=== PATIENT | male | born 1965 | race Caucasian/White ===

== ENCOUNTER 2017-01-12 12:42 | Inpatient (IN) | payer SELFPAY ==
[~2017-01-12] VITALS: Ht 180.3 cm; Wt 74.8 kg
[2017-01-12] MEDS ORDERED: ACETAMINOPHEN 325MG TABLET PO STA (13:05)
[2017-01-12] MEDS ORDERED: VANCOMYCIN 1 G PREMIX 200 ML IV ONE (13:15)
[2017-01-12] MEDS ORDERED: SODIUM CHLORIDE 0.9% 1000ML BAG (SEPSIS BOLUS) IV ONE (13:15)
[2017-01-12] MEDS ORDERED: PIPERACILLIN/TAZ 3.375G PREMIX 50 ML IV ONE (13:15)
[2017-01-12 13:47] LABS: HEMATOCRIT. 30.4 % (42.0-52.0); HEMOGLOBIN. 9.9 g/dL (14.0-18.0); MEAN CORPUSCULAR HEMOGLOBIN 27.9 pg (28.0-32.0); MEAN CORPUSCULAR VOLUME 85.7 fL (80.0-94.0); PLATELET 705 x1000/uL (130-400); RED BLOOD CELL COUNT 3.55 mill/uL (4.7-6.1); RED CELL DISTRIBUTION WIDTH 14.5 % (11.6-14.6)
[2017-01-12 13:57] LABS: INR 1.3; PROTHROMBIN TIME 13.5 sec (9.4-11.6)
[2017-01-12 14:21] LABS: CARBON DIOXIDE 24 mEq/L (21-32); CHLORIDE 89 mEq/L (98-107)
[2017-01-12] MEDS ORDERED: ONDANSETRON HCL 4MG/2ML VIAL IV STA (14:40)
[2017-01-12] MEDS ORDERED: MORPHINE SULFATE 4 MG/ML CPJ (NOT FOR IM USE) IV STA (14:40)
[2017-01-12 16:32] LABS: PLATELET ESTIMATE MARKEDLY INCREASED
[2017-01-12 21:30] VITALS: BP 126/75
[2017-01-12] MEDS ORDERED: ONDANSETRON HCL 4MG/2ML VIAL IV PRN (23:00)
[2017-01-12] MEDS ORDERED: IPRATROPIUM/ALBUTEROL 0.5-3(2.5)MG/3ML NEB INH PRN (23:00)
[2017-01-12] MEDS ORDERED: VANCOMYCIN 1 G PREMIX 200 ML IV SCH (23:00)
[2017-01-12] MEDS ORDERED: MAGNESIUM/ALUMINUM HYDROXIDE/SIMETHICONE 30ML UDC PO PRN (23:00)
[2017-01-12] MEDS: HYDROCODONE/ACETAMINOPHEN 10/325MG TABLET PO PRN (23:37)
[2017-01-12] MEDS: SODIUM CHLORIDE 0.9% 1,000 ML IV SCH (23:47)
[2017-01-13] VITALS (8 sets, daily range): BP systolic 102–141; BP diastolic 50–80
[2017-01-13] MEDS ORDERED: INSULIN DETEMIR UD 100 UNITS/ML SYR SUBCUT NR
[2017-01-13] MEDS: PIPERACILLIN/TAZ 3.375G PREMIX 50 ML IV SCH ×3 (01:27→17:34)
[2017-01-13] MEDS: VANCOMYCIN 2,000 MG in DEXT 5% WATER 500 ML IV SCH ×2 (03:05→09:54)
[2017-01-13] MEDS: BLOOD SUGAR DIAGNOSTIC STRIP TEST SCH ×4 (05:51→20:52)
[2017-01-13] MEDS: HYDROCODONE/ACETAMINOPHEN 10/325MG TABLET PO PRN (05:56)
[2017-01-13] MEDS: INSULIN LISPRO 100 UNITS/ML SUBCUT SCH ×4 (06:38→20:51)
[2017-01-13] MEDS: ACETAMINOPHEN 325MG TABLET PO PRN (18:35)
[2017-01-13] MEDS ORDERED: INSULIN DETEMIR UD 100 UNITS/ML SYR SUBCUT SCH ×2 (22:00)
[2017-01-14] VITALS: BP 126/66
[2017-01-14] MEDS: PIPERACILLIN/TAZ 3.375G PREMIX 50 ML IV SCH ×3 (00:36→18:10)
[2017-01-14] MEDS: SODIUM CHLORIDE 0.9% 1,000 ML IV SCH (00:39)
[2017-01-14 04:00] VITALS: BP 130/67
[2017-01-14 06:10] VITALS: BP 140/92
[2017-01-14] MEDS: BLOOD SUGAR DIAGNOSTIC STRIP TEST SCH ×4 (06:34→20:33)
[2017-01-14] MEDS: DEXTROSE 50% WATER 50ML SYRINGE IV PRN ×2 (06:35→18:14)
[2017-01-14] MEDS: INSULIN LISPRO 100 UNITS/ML SUBCUT SCH ×4 (06:37→21:01)
[2017-01-14 07:02] LABS: HEMATOCRIT. 26.5 % (42.0-52.0); HEMOGLOBIN. 8.7 g/dL (14.0-18.0); MEAN CORPUSCULAR VOLUME 85.5 fL (80.0-94.0); MEAN PLATELET VOLUME 8.2 fl (7.4-10.4); PLATELET 603 x1000/uL (130-400); RED CELL DISTRIBUTION WIDTH 14.6 % (11.6-14.6)
[2017-01-14 08:00] VITALS: BP 150/77
[2017-01-14] MEDS ORDERED: DEXT 5% WATER 500 ML IV SCH (11:15)
[2017-01-14] MEDS ORDERED: POTASSIUM CHLORIDE 20MEQ TABLET SR PO NR ×2 (11:15→13:30)
[2017-01-14 12:00] VITALS: BP 124/67
[2017-01-14 18:10] LABS: PLATELET ESTIMATE INCREASED
[2017-01-14 18:17] LABS: BG BASE EXCESS 0.9 mmol/L (-2.0-2.0); BG CARBOXYHEMOGLOBIN 0.3 % (0.5-1.5); BG DEOXYHEMOGLOBIN 4.8 % (0.0-5.0); BG FRACTION INSPIRED OXYGEN 21; BG HCO3 ACT 24.6 mmol/L (22.0-26.0); BG METHEMOGLOBIN 0.1 % (0.0-1.5); BG OXYGEN SATURATION 95.2 % (92.0-98.5); BG OXYHEMOGLOBIN 94.8 % (94.0-97.0); BG PCO2 35.7 mmHg (35.0-45.0); BG PH 7.457 (7.350-7.450); BG PO2 73.9 mmHg (75.0-100.0); BG SAMPLE SITE RIGHT RADIAL; BG TOTAL HEMOGLOBIN 9.2 g/dL (12.0-18.0); BG VENT MODE ROOM AIR
[2017-01-14] MEDS: HYDROCODONE/ACETAMINOPHEN 10/325MG TABLET PO PRN (20:34)
[2017-01-14 20:38] VITALS: BP 122/63
[2017-01-14 20:45] LABS: HEMATOCRIT. 23.9 % (42.0-52.0); HEMOGLOBIN. 7.8 g/dL (14.0-18.0); MEAN CORPUSCULAR HEMOGLOBIN 27.7 pg (28.0-32.0); MEAN PLATELET VOLUME 7.7 fl (7.4-10.4); PLATELET 512 x1000/uL (130-400); RED BLOOD CELL COUNT 2.82 mill/uL (4.7-6.1); RED CELL DISTRIBUTION WIDTH 14.7 % (11.6-14.6)
[2017-01-14 21:08] LABS: CARBON DIOXIDE 25 mEq/L (21-32); CHLORIDE 93 mEq/L (98-107); TROPONIN I < 0.02 ng/mL (0.00-0.04)
[2017-01-14 21:11] LABS: PLATELET ESTIMATE INCREASED
[2017-01-15] VITALS: BP 129/73
[2017-01-15] MEDS: PIPERACILLIN/TAZ 3.375G PREMIX 50 ML IV SCH ×2 (01:04→09:40)
[2017-01-15] MEDS: SODIUM CHLORIDE 0.9% 1,000 ML IV SCH ×2 (01:20→23:47)
[2017-01-15 04:00] VITALS: BP 115/60
[2017-01-15] MEDS: BLOOD SUGAR DIAGNOSTIC STRIP TEST SCH ×4 (06:11→20:15)
[2017-01-15] MEDS: INSULIN LISPRO 100 UNITS/ML SUBCUT SCH ×4 (06:27→20:16)
[2017-01-15 07:35] VITALS: BP 131/67
[2017-01-15 12:00] VITALS: BP 125/62
[2017-01-15] MEDS ORDERED: MORPHINE SULFATE 4 MG/ML CPJ (NOT FOR IM USE) IV NR (12:15)
[2017-01-15] MEDS ORDERED: MORPHINE SULFATE 4 MG/ML CPJ (NOT FOR IM USE) IV PRN ×2 (12:15→18:00)
[2017-01-15] MEDS ORDERED: TETANUS, DIPHTHERIA, PERTUSSIS VAC/PF 0.5ML (>7YR OLD) IM ONE (13:45)
[2017-01-15 16:12] VITALS: BP 132/77
[2017-01-15] MEDS ORDERED: PIPERACILLIN/TAZ 2.25G PREMIX 50 ML IV SCH (18:00)
[2017-01-15] MEDS: ACETAMINOPHEN 325MG TABLET PO PRN (18:01)
[2017-01-15 20:00] VITALS: BP 134/74
[2017-01-15 20:51] LABS: HEMATOCRIT. 23.4 % (42.0-52.0); HEMOGLOBIN. 7.7 g/dL (14.0-18.0); MEAN CORPUSCULAR HEMOGLOBIN 27.9 pg (28.0-32.0); MEAN CORPUSCULAR VOLUME 84.4 fL (80.0-94.0); MEAN PLATELET VOLUME 7.5 fl (7.4-10.4); PLATELET 509 x1000/uL (130-400); RED BLOOD CELL COUNT 2.78 mill/uL (4.7-6.1); RED CELL DISTRIBUTION WIDTH 14.8 % (11.6-14.6)
[2017-01-15 21:27] LABS: PLATELET ESTIMATE INCREASED
[2017-01-15] MEDS: PIPERACILLIN/TAZ 2.25G PREMIX 50 ML IV SCH (23:46)
[2017-01-16] VITALS: BP 125/65
[2017-01-16 04:00] VITALS: BP 129/65
[2017-01-16] MEDS: BLOOD SUGAR DIAGNOSTIC STRIP TEST SCH ×4 (06:11→20:24)
[2017-01-16] MEDS: INSULIN LISPRO 100 UNITS/ML SUBCUT SCH ×4 (06:23→21:13)
[2017-01-16 06:59] LABS: HEMATOCRIT. 24.7 % (42.0-52.0); HEMOGLOBIN. 8.1 g/dL (14.0-18.0); MEAN CORPUSCULAR HEMOGLOBIN 27.8 pg (28.0-32.0); MEAN PLATELET VOLUME 7.6 fl (7.4-10.4); PLATELET 510 x1000/uL (130-400); RED CELL DISTRIBUTION WIDTH 14.5 % (11.6-14.6)
[2017-01-16 08:00] VITALS: BP 149/79
[2017-01-16] MEDS: PIPERACILLIN/TAZ 2.25G PREMIX 50 ML IV SCH ×2 (08:36→15:27)
[2017-01-16] MEDS: SODIUM CHLORIDE 0.9% 1,000 ML IV SCH ×3 (08:36→18:53)
[2017-01-16] MEDS ORDERED: HEPARIN 1000 UNITS/ML 10ML ONE (10:55)
[2017-01-16 12:00] VITALS: BP 140/77
[2017-01-16 12:08] LABS: HEPATITIS B SURFACE ANTIGEN NEGATIVE
[2017-01-16] MEDS: ACETAMINOPHEN 325MG TABLET PO PRN (12:20)
[2017-01-16 12:36] LABS: HEPATITIS B CORE AB IGM NEGATIVE
[2017-01-16 12:37] LABS: HEPATITIS A AB IGM NEGATIVE (NEGATIVE)
[2017-01-16 16:00] VITALS: BP 133/74
[2017-01-16 16:47] LABS: PLATELET ESTIMATE INCREASED
[2017-01-16 20:00] VITALS: BP 141/81
[2017-01-17] VITALS: BP 139/64
[2017-01-17] MEDS: PIPERACILLIN/TAZ 2.25G PREMIX 50 ML IV SCH ×3 (00:15→23:51)
[2017-01-17 04:00] VITALS: BP 137/80
[2017-01-17] MEDS: SODIUM CHLORIDE 0.9% 1,000 ML IV SCH ×2 (04:06→22:11)
[2017-01-17] MEDS ORDERED: ONDANSETRON HCL 4MG/2ML VIAL IV PRN (06:15)
[2017-01-17] MEDS: BLOOD SUGAR DIAGNOSTIC STRIP TEST SCH ×4 (06:15→20:34)
[2017-01-17] MEDS ORDERED: SUCCINYLCHOLINE CHLORIDE 200MG/10ML VIAL IV ONE (06:27)
[2017-01-17] MEDS ORDERED: PROPOFOL 200MG/20ML VIAL IV ONE (06:27)
[2017-01-17] MEDS ORDERED: LIDOCAINE HCL 1% 20ML VIAL (Pyxis) INJ ONE (06:27)
[2017-01-17] MEDS ORDERED: ROCURONIUM BROMIDE 10MG/ML VIAL 5ML IV ONE (06:27)
[2017-01-17] MEDS ORDERED: MIDAZOLAM HCL 2 MG/2 ML VIAL ONE (06:27)
[2017-01-17 06:37] LABS: HEMATOCRIT. 23.8 % (42.0-52.0); HEMOGLOBIN. 7.9 g/dL (14.0-18.0); MEAN CORPUSCULAR HEMOGLOBIN 27.9 pg (28.0-32.0); MEAN PLATELET VOLUME 7.3 fl (7.4-10.4); PLATELET 515 x1000/uL (130-400); RED BLOOD CELL COUNT 2.83 mill/uL (4.7-6.1); RED CELL DISTRIBUTION WIDTH 14.7 % (11.6-14.6)
[2017-01-17] MEDS ORDERED: VANCOMYCIN HCL 500 MG/VIAL ONE (07:21)
[2017-01-17] MEDS ORDERED: NORMAL SALINE 0.9% 10 ML SYR ONE ×2 (07:21→08:24)
[2017-01-17] MEDS ORDERED: BACITRACIN 50,000 UNITS/VIAL ONE ×2 (07:21→08:24)
[2017-01-17 08:00] VITALS: BP 132/65
[2017-01-17] MEDS ORDERED: FENTANYL CITRATE/PF 50MCG/ML 2ML VIAL ONE ×2 (08:14→08:25)
[2017-01-17] MEDS ORDERED: GENTAMICIN SULF 40MG/ML 2ML VIAL ONE (08:24)
[2017-01-17] MEDS: HYDROMORPHONE HCL/PF 2MG/ML CPJ IV PRN ×6 (08:53→19:01)
[2017-01-17] MEDS ORDERED: HEPARIN SODIUM 1,000 UNIT/1ML VIAL IV NR (09:00)
[2017-01-17] MEDS: FENTANYL CITRATE/PF 50MCG/ML 2ML VIAL IV PRN ×3 (09:02→09:14)
[2017-01-17] MEDS ORDERED: HYDROCODONE/ACETAMINOPHEN 5/325MG TABLET PO PRN (09:30)
[2017-01-17] MEDS: INSULIN LISPRO 100 UNITS/ML SUBCUT SCH ×3 (12:40→21:07)
[2017-01-17 13:26] LABS: PLATELET ESTIMATE INCREASED
[2017-01-17 16:00] VITALS: BP 129/72
[2017-01-17 20:00] VITALS: BP 120/67
[2017-01-18] VITALS (17 sets, daily range): BP systolic 120–162; BP diastolic 60–93
[2017-01-18] MEDS: ACETAMINOPHEN 325MG TABLET PO PRN ×3 (00:01→13:01)
[2017-01-18 06:04] LABS: BASOPHILS % 0.6 % (0.0-2.0); EOSINOPHILS % 1.7 % (0.0-5.0); LYMPHOCYTES % 12.5 % (20.0-50.0); MEAN CORPUSCULAR HEMOGLOBIN 28.2 pg (28.0-32.0); MEAN CORPUSCULAR VOLUME 84.6 fL (80.0-94.0); MEAN PLATELET VOLUME 7.4 fl (7.4-10.4); MONOCYTES % 8.2 % (2.0-8.0); PLATELET 373 x1000/uL (130-400); RED BLOOD CELL COUNT 1.73 mill/uL (4.7-6.1); RED CELL DISTRIBUTION WIDTH 14.6 % (11.6-14.6)
[2017-01-18] MEDS: BLOOD SUGAR DIAGNOSTIC STRIP TEST SCH ×4 (06:19→20:38)
[2017-01-18] MEDS: INSULIN LISPRO 100 UNITS/ML SUBCUT SCH ×4 (06:26→20:38)
[2017-01-18 06:31] LABS: HEMATOCRIT. 14.6 % (42.0-52.0); HEMOGLOBIN. 4.9 g/dL (14.0-18.0)
[2017-01-18] MEDS: DIPHENHYDRAMINE 50MG/ML VIAL IV PRN (13:02)
[2017-01-18] MEDS: PIPERACILLIN/TAZ 2.25G PREMIX 50 ML IV SCH ×2 (13:04→21:27)
[2017-01-18] MEDS ORDERED: ZINC SULFATE 220 MG ( 50 ) CAPSULE PO NR (17:30)
[2017-01-18 17:51] LABS: INR 1.1; PROTHROMBIN TIME 11.4 sec (9.4-11.6)
[2017-01-18] MEDS: ONDANSETRON HCL 4MG/2ML VIAL IV PRN (18:49)
[2017-01-18 20:25] LABS: HEMATOCRIT 28.2 % (42.0-52.0); HEMOGLOBIN 9.7 g/dL (14.0-18.0)
[2017-01-18] MEDS: CLONIDINE 0.1MG TABLET PO PRN (20:34)
[2017-01-18] MEDS: ASCORBIC ACID 250 MG TABLET PO SCH (20:34)
[2017-01-19] VITALS: BP 151/79
[2017-01-19 04:00] VITALS: BP 141/74
[2017-01-19] MEDS: PIPERACILLIN/TAZ 2.25G PREMIX 50 ML IV SCH ×2 (05:25→17:27)
[2017-01-19] MEDS: BLOOD SUGAR DIAGNOSTIC STRIP TEST SCH ×4 (06:19→21:24)
[2017-01-19] MEDS: INSULIN LISPRO 100 UNITS/ML SUBCUT SCH ×4 (07:11→21:33)
[2017-01-19 08:00] VITALS: BP 152/76
[2017-01-19] MEDS: ASCORBIC ACID 250 MG TABLET PO SCH ×2 (09:04→21:13)
[2017-01-19] MEDS: MULTIVITAMINS,THER W-MINERALS TABLET PO SCH (09:04)
[2017-01-19 12:00] VITALS: BP 161/81
[2017-01-19 12:39] LABS: BASOPHILS % 0.7 % (0.0-2.0); EOSINOPHILS % 1.5 % (0.0-5.0); HEMATOCRIT. 24.8 % (42.0-52.0); HEMOGLOBIN. 8.3 g/dL (14.0-18.0); LYMPHOCYTES % 9.1 % (20.0-50.0); MEAN CORPUSCULAR VOLUME 83.7 fL (80.0-94.0); MONOCYTES % 6.6 % (2.0-8.0); NEUTROPHILS % 82.1 % (40.0-76.0); PLATELET 421 x1000/uL (130-400); RED BLOOD CELL COUNT 2.97 mill/uL (4.7-6.1); RED CELL DISTRIBUTION WIDTH 14.2 % (11.6-14.6)
[2017-01-19] MEDS: ONDANSETRON HCL 4MG/2ML VIAL IV PRN (14:35)
[2017-01-19 15:59] VITALS: BP 146/74
[2017-01-19] MEDS: PAROXETINE HCL 20MG TABLET PO SCH (17:28)
[2017-01-19 20:00] VITALS: BP 156/81
[2017-01-19] MEDS: HYDROCODONE/ACETAMINOPHEN 10/325MG TABLET PO PRN (22:26)
[2017-01-20] VITALS: BP 147/74
[2017-01-20] MEDS: PIPERACILLIN/TAZ 2.25G PREMIX 50 ML IV SCH ×2 (00:27→08:56)
[2017-01-20] MEDS: SODIUM CHLORIDE 0.9% 1,000 ML IV SCH ×3 (00:27→15:59)
[2017-01-20 04:00] VITALS: BP 153/83
[2017-01-20] MEDS: INSULIN LISPRO 100 UNITS/ML SUBCUT SCH ×4 (06:59→21:00)
[2017-01-20] MEDS: BLOOD SUGAR DIAGNOSTIC STRIP TEST SCH ×4 (07:00→21:00)
[2017-01-20 07:28] LABS: BASOPHILS % 0.7 % (0.0-2.0); EOSINOPHILS % 2.5 % (0.0-5.0); HEMATOCRIT. 25.1 % (42.0-52.0); HEMOGLOBIN. 8.5 g/dL (14.0-18.0); LYMPHOCYTES % 12.4 % (20.0-50.0); MEAN CORPUSCULAR HEMOGLOBIN 28.5 pg (28.0-32.0); MEAN CORPUSCULAR VOLUME 84.2 fL (80.0-94.0); MEAN PLATELET VOLUME 6.9 fl (7.4-10.4); MONOCYTES % 5.8 % (2.0-8.0); NEUTROPHILS % 78.6 % (40.0-76.0); PLATELET 413 x1000/uL (130-400); RED BLOOD CELL COUNT 2.98 mill/uL (4.7-6.1); RED CELL DISTRIBUTION WIDTH 14.2 % (11.6-14.6)
[2017-01-20 08:00] VITALS: BP 154/85
[2017-01-20] MEDS: MULTIVITAMINS,THER W-MINERALS TABLET PO SCH (08:56)
[2017-01-20] MEDS: FERROUS SULFATE 325MG TABLET PO SCH (08:57)
[2017-01-20] MEDS: ASCORBIC ACID 250 MG TABLET PO SCH ×2 (09:01→22:01)
[2017-01-20] MEDS: PAROXETINE HCL 20MG TABLET PO SCH (09:01)
[2017-01-20 12:00] VITALS: BP 160/83
[2017-01-20] MEDS: CEFTRIAXONE 2 G PREMIX 50 ML IV SCH (15:59)
[2017-01-20 16:00] VITALS: BP 165/68
[2017-01-20] MEDS: ONDANSETRON HCL 4MG/2ML VIAL IV PRN (18:39)
[2017-01-20 20:00] VITALS: BP 167/89
[2017-01-20] MEDS: CLONIDINE 0.1MG TABLET PO PRN (22:01)
[2017-01-21] VITALS: BP 155/83
[2017-01-21] MEDS: SODIUM CHLORIDE 0.9% 1,000 ML IV SCH (00:48)
[2017-01-21 04:00] VITALS: BP 166/82
[2017-01-21] MEDS: BLOOD SUGAR DIAGNOSTIC STRIP TEST SCH ×4 (06:05→21:59)
[2017-01-21] MEDS: INSULIN LISPRO 100 UNITS/ML SUBCUT SCH ×4 (06:05→21:00)
[2017-01-21 07:05] LABS: BASOPHILS % 0.7 % (0.0-2.0); EOSINOPHILS % 2.5 % (0.0-5.0); HEMATOCRIT. 24.1 % (42.0-52.0); HEMOGLOBIN. 8.1 g/dL (14.0-18.0); LYMPHOCYTES % 9.6 % (20.0-50.0); MEAN CORPUSCULAR HEMOGLOBIN 28.7 pg (28.0-32.0); MEAN CORPUSCULAR VOLUME 84.7 fL (80.0-94.0); MEAN PLATELET VOLUME 6.8 fl (7.4-10.4); MONOCYTES % 4.3 % (2.0-8.0); NEUTROPHILS % 82.9 % (40.0-76.0); PLATELET 387 x1000/uL (130-400); RED BLOOD CELL COUNT 2.84 mill/uL (4.7-6.1); RED CELL DISTRIBUTION WIDTH 14.1 % (11.6-14.6)
[2017-01-21 08:00] VITALS: BP 182/98
[2017-01-21] MEDS ORDERED: HEPARIN SODIUM 1,000 UNIT/1ML VIAL IV SCH (09:30)
[2017-01-21 12:00] VITALS: BP 166/85
[2017-01-21] MEDS: ASCORBIC ACID 250 MG TABLET PO SCH ×2 (12:58→21:42)
[2017-01-21] MEDS: FERROUS SULFATE 325MG TABLET PO SCH (12:58)
[2017-01-21] MEDS: MULTIVITAMINS,THER W-MINERALS TABLET PO SCH (12:58)
[2017-01-21] MEDS: PAROXETINE HCL 20MG TABLET PO SCH (12:58)
[2017-01-21] MEDS: CLONIDINE 0.1MG TABLET PO PRN (15:28)
[2017-01-21] MEDS: CEFTRIAXONE 2 G PREMIX 50 ML IV SCH (15:28)
[2017-01-21] MEDS ORDERED: BACITRACIN ZINC 15GM TUBE TOP ONE (16:02)
[2017-01-21] MEDS ORDERED: BACITRACIN 50,000 UNITS/VIAL ONE (16:02)
[2017-01-21] MEDS ORDERED: NORMAL SALINE 0.9% 10 ML SYR ONE (16:03)
[2017-01-21] MEDS ORDERED: MIDAZOLAM HCL 2 MG/2 ML VIAL ONE (17:39)
[2017-01-21] MEDS ORDERED: FENTANYL CITRATE/PF 50MCG/ML 2ML VIAL ONE (17:39)
[2017-01-21] MEDS ORDERED: LABETALOL HCL 20MG/4ML CARPUJECT IV PRN (18:00)
[2017-01-21] MEDS ORDERED: MEPERIDINE HCL/PF 25MG/ML CPJ IV PRN (18:00)
[2017-01-21] MEDS ORDERED: ONDANSETRON HCL 4MG/2ML VIAL IV PRN (18:00)
[2017-01-21] MEDS ORDERED: HYDROMORPHONE HCL/PF 2MG/ML CPJ IV PRN (18:00)
[2017-01-21] MEDS ORDERED: HYDROMORPHONE HCL/PF 2MG/ML (OR) ONE (18:09)
[2017-01-21] MEDS ORDERED: LIDOCAINE HCL 1% 20ML VIAL (Pyxis) INJ ONE (18:10)
[2017-01-21] MEDS ORDERED: PROPOFOL 200MG/20ML VIAL IV ONE (18:10)
[2017-01-21] MEDS: HYDROMORPHONE HCL/PF 2MG/ML CPJ IV PRN (19:55)
[2017-01-21 20:00] VITALS: BP 154/78
[2017-01-22] VITALS: BP_SYST 131; BP_SYST 138; BP_DIAS 67; BP_DIAS 70
[2017-01-22 04:00] VITALS: BP 145/74
[2017-01-22] MEDS: HYDROCODONE/ACETAMINOPHEN 10/325MG TABLET PO PRN (04:21)
[2017-01-22] MEDS: DIPHENHYDRAMINE 50MG/ML VIAL IV PRN (04:22)
[2017-01-22] MEDS: INSULIN LISPRO 100 UNITS/ML SUBCUT SCH ×4 (07:40→21:00)
[2017-01-22] MEDS: BLOOD SUGAR DIAGNOSTIC STRIP TEST SCH ×4 (07:46→21:24)
[2017-01-22 08:00] VITALS: BP 140/69
[2017-01-22] MEDS: ASCORBIC ACID 250 MG TABLET PO SCH ×2 (09:43→21:25)
[2017-01-22] MEDS: FERROUS SULFATE 325MG TABLET PO SCH (09:43)
[2017-01-22] MEDS: MULTIVITAMINS,THER W-MINERALS TABLET PO SCH (09:43)
[2017-01-22] MEDS: PAROXETINE HCL 20MG TABLET PO SCH (09:43)
[2017-01-22] MEDS: HYDROMORPHONE HCL/PF 2MG/ML CPJ IV PRN ×2 (10:32→17:11)
[2017-01-22 12:00] VITALS: BP 159/80
[2017-01-22] MEDS: CEFTRIAXONE 2 G in DEXTROSE 5% WATER 50 ML IV SCH (13:41)
[2017-01-22 16:00] VITALS: BP 157/76
[2017-01-22] MEDS: ACETAMINOPHEN 325MG TABLET PO PRN (17:10)
[2017-01-22 20:00] VITALS: BP 149/76
[2017-01-23] VITALS: BP 167/90
[2017-01-23] MEDS: HYDROCODONE/ACETAMINOPHEN 10/325MG TABLET PO PRN (03:08)
[2017-01-23 04:00] VITALS: BP 158/75
[2017-01-23 06:30] LABS: BASOPHILS % 0.6 % (0.0-2.0); EOSINOPHILS % 1.5 % (0.0-5.0); HEMATOCRIT. 21.9 % (42.0-52.0); HEMOGLOBIN. 7.3 g/dL (14.0-18.0); LYMPHOCYTES % 11.6 % (20.0-50.0); MEAN CORPUSCULAR HEMOGLOBIN 28.3 pg (28.0-32.0); MEAN PLATELET VOLUME 6.8 fl (7.4-10.4); MONOCYTES % 4.2 % (2.0-8.0); NEUTROPHILS % 82.1 % (40.0-76.0); PLATELET 298 x1000/uL (130-400); RED BLOOD CELL COUNT 2.58 mill/uL (4.7-6.1); RED CELL DISTRIBUTION WIDTH 14.1 % (11.6-14.6)
[2017-01-23] MEDS: BLOOD SUGAR DIAGNOSTIC STRIP TEST SCH ×4 (07:00→21:24)
[2017-01-23] MEDS: INSULIN LISPRO 100 UNITS/ML SUBCUT SCH ×4 (07:01→21:00)
[2017-01-23 08:00] VITALS: BP 172/88
[2017-01-23] MEDS: FERROUS SULFATE 325MG TABLET PO SCH (08:21)
[2017-01-23] MEDS: ASCORBIC ACID 250 MG TABLET PO SCH ×2 (08:21→21:39)
[2017-01-23] MEDS: MULTIVITAMINS,THER W-MINERALS TABLET PO SCH (08:21)
[2017-01-23] MEDS: PAROXETINE HCL 20MG TABLET PO SCH (08:21)
[2017-01-23] MEDS: HYDROMORPHONE HCL/PF 2MG/ML CPJ IV PRN (08:23)
[2017-01-23] MEDS: ACETAMINOPHEN 325MG TABLET PO PRN (11:29)
[2017-01-23] MEDS: CLONIDINE 0.1MG TABLET PO PRN (11:29)
[2017-01-23 12:00] VITALS: BP 173/89
[2017-01-23] MEDS: CEFTRIAXONE 2 G in DEXTROSE 5% WATER 50 ML IV SCH (15:37)
[2017-01-23 16:00] VITALS: BP 166/84
[2017-01-23 20:00] VITALS: BP 175/92
[2017-01-24] VITALS (9 sets, daily range): BP systolic 115–179; BP diastolic 60–106
[2017-01-24 06:50] LABS: BASOPHILS % 0.6 % (0.0-2.0); EOSINOPHILS % 1.4 % (0.0-5.0); HEMATOCRIT. 27.1 % (42.0-52.0); HEMOGLOBIN. 9.3 g/dL (14.0-18.0); LYMPHOCYTES % 11.8 % (20.0-50.0); MEAN CORPUSCULAR HEMOGLOBIN 29.2 pg (28.0-32.0); MEAN PLATELET VOLUME 7.2 fl (7.4-10.4); MONOCYTES % 4.4 % (2.0-8.0); NEUTROPHILS % 81.8 % (40.0-76.0); PLATELET 292 x1000/uL (130-400); RED BLOOD CELL COUNT 3.18 mill/uL (4.7-6.1); RED CELL DISTRIBUTION WIDTH 13.8 % (11.6-14.6)
[2017-01-24] MEDS: INSULIN LISPRO 100 UNITS/ML SUBCUT SCH ×4 (07:29→20:35)
[2017-01-24] MEDS: BLOOD SUGAR DIAGNOSTIC STRIP TEST SCH ×4 (07:29→20:32)
[2017-01-24] MEDS ORDERED: NIFEDIPINE XL 60MG TAB PO SCH (07:45)
[2017-01-24] MEDS: CLONIDINE 0.1MG TABLET PO PRN ×2 (08:37→14:50)
[2017-01-24] MEDS: PAROXETINE HCL 20MG TABLET PO SCH (08:37)
[2017-01-24] MEDS: FERROUS SULFATE 325MG TABLET PO SCH (08:37)
[2017-01-24] MEDS: NIFEDIPINE XL 60MG TAB PO SCH (08:37)
[2017-01-24] MEDS: MULTIVITAMINS,THER W-MINERALS TABLET PO SCH (08:37)
[2017-01-24] MEDS: ASCORBIC ACID 250 MG TABLET PO SCH ×2 (08:38→20:39)
[2017-01-24] MEDS: HYDROMORPHONE HCL/PF 2MG/ML CPJ IV PRN ×2 (08:45→18:37)
[2017-01-24] MEDS: CEFTRIAXONE 2 G in DEXTROSE 5% WATER 50 ML IV SCH (14:55)
[2017-01-25] VITALS: BP 112/62
[2017-01-25 08:00] VITALS: BP 113/65
[2017-01-25] MEDS: NIFEDIPINE XL 60MG TAB PO SCH (09:44)
[2017-01-25] MEDS: MULTIVITAMINS,THER W-MINERALS TABLET PO SCH (09:44)
[2017-01-25] MEDS: ASCORBIC ACID 250 MG TABLET PO SCH ×2 (09:44→20:45)
[2017-01-25] MEDS: FERROUS SULFATE 325MG TABLET PO SCH (09:44)
[2017-01-25] MEDS: PAROXETINE HCL 20MG TABLET PO SCH (09:44)
[2017-01-25 10:09] LABS: BASOPHILS % 0.7 % (0.0-2.0); EOSINOPHILS % 1.5 % (0.0-5.0); HEMATOCRIT. 27.5 % (42.0-52.0); HEMOGLOBIN. 9.2 g/dL (14.0-18.0); LYMPHOCYTES % 12.3 % (20.0-50.0); MEAN CORPUSCULAR HEMOGLOBIN 28.3 pg (28.0-32.0); MEAN CORPUSCULAR VOLUME 84.9 fL (80.0-94.0); MEAN PLATELET VOLUME 7.9 fl (7.4-10.4); MONOCYTES % 5.1 % (2.0-8.0); NEUTROPHILS % 80.4 % (40.0-76.0); PLATELET 265 x1000/uL (130-400); RED BLOOD CELL COUNT 3.24 mill/uL (4.7-6.1); RED CELL DISTRIBUTION WIDTH 14.2 % (11.6-14.6)
[2017-01-25 12:00] VITALS: BP 117/67
[2017-01-25] MEDS: BLOOD SUGAR DIAGNOSTIC STRIP TEST SCH ×3 (12:10→20:44)
[2017-01-25] MEDS: INSULIN LISPRO 100 UNITS/ML SUBCUT SCH ×3 (12:40→20:51)
[2017-01-25] MEDS: HYDROMORPHONE HCL/PF 2MG/ML CPJ IV PRN (13:51)
[2017-01-25] MEDS: CEFTRIAXONE 2 G in DEXTROSE 5% WATER 50 ML IV SCH (13:52)
[2017-01-25] MEDS: HYDROCODONE/ACETAMINOPHEN 10/325MG TABLET PO PRN (14:51)
[2017-01-25 16:00] VITALS: BP 133/70
[2017-01-25 20:00] VITALS: BP 128/78
[2017-01-25 23:34] VITALS: BP 113/65
[2017-01-26] VITALS (9 sets, daily range): BP systolic 115–130; BP diastolic 62–81
[2017-01-26] MEDS: ONDANSETRON HCL 4MG/2ML VIAL IV PRN (01:43)
[2017-01-26] MEDS: HYDROMORPHONE HCL/PF 2MG/ML CPJ IV PRN ×2 (01:43→20:38)
[2017-01-26] MEDS: BLOOD SUGAR DIAGNOSTIC STRIP TEST SCH ×4 (05:44→20:27)
[2017-01-26 06:54] LABS: BASOPHILS % 0.7 % (0.0-2.0); EOSINOPHILS % 2.1 % (0.0-5.0); HEMOGLOBIN. 9.6 g/dL (14.0-18.0); LYMPHOCYTES % 12.1 % (20.0-50.0); MEAN CORPUSCULAR HEMOGLOBIN 28.1 pg (28.0-32.0); MEAN CORPUSCULAR VOLUME 84.4 fL (80.0-94.0); MEAN PLATELET VOLUME 7.5 fl (7.4-10.4); NEUTROPHILS % 80.1 % (40.0-76.0); PLATELET 234 x1000/uL (130-400); RED BLOOD CELL COUNT 3.43 mill/uL (4.7-6.1)
[2017-01-26] MEDS: INSULIN LISPRO 100 UNITS/ML SUBCUT SCH ×4 (07:40→20:42)
[2017-01-26] MEDS: ASCORBIC ACID 250 MG TABLET PO SCH ×2 (09:41→20:41)
[2017-01-26] MEDS: FERROUS SULFATE 325MG TABLET PO SCH (09:41)
[2017-01-26] MEDS: MULTIVITAMINS,THER W-MINERALS TABLET PO SCH (09:41)
[2017-01-26] MEDS: PAROXETINE HCL 20MG TABLET PO SCH (09:41)
[2017-01-26] MEDS: NIFEDIPINE XL 60MG TAB PO SCH (09:42)
[2017-01-26] MEDS: HYDROMORPHONE HCL/PF 2MG/ML CPJ IV SCH (09:43)
[2017-01-26] MEDS: CEFTRIAXONE 2 G in DEXTROSE 5% WATER 50 ML IV SCH (15:01)
[2017-01-26] MEDS ORDERED: HYDROCODONE/ACETAMINOPHEN 10/325MG TABLET PO PRN (22:15)
[2017-01-27] VITALS: BP 127/75
[2017-01-27 04:00] VITALS: BP 119/60
[2017-01-27] MEDS: HYDROMORPHONE HCL/PF 2MG/ML CPJ IV PRN ×2 (06:01→20:50)
[2017-01-27] MEDS: BLOOD SUGAR DIAGNOSTIC STRIP TEST SCH ×4 (06:06→20:47)
[2017-01-27] MEDS: INSULIN LISPRO 100 UNITS/ML SUBCUT SCH ×4 (06:06→20:47)
[2017-01-27 08:00] VITALS: BP 126/73
[2017-01-27] MEDS: ASCORBIC ACID 250 MG TABLET PO SCH ×2 (08:26→20:47)
[2017-01-27] MEDS: MULTIVITAMINS,THER W-MINERALS TABLET PO SCH (08:26)
[2017-01-27] MEDS: PAROXETINE HCL 20MG TABLET PO SCH (08:26)
[2017-01-27] MEDS: FERROUS SULFATE 325MG TABLET PO SCH (08:26)
[2017-01-27] MEDS: NIFEDIPINE XL 60MG TAB PO SCH (08:26)
[2017-01-27] MEDS: HYDROMORPHONE HCL/PF 2MG/ML CPJ IV SCH (10:25)
[2017-01-27 12:00] VITALS: BP 134/78
[2017-01-27] MEDS: CEFTRIAXONE 2 G in DEXTROSE 5% WATER 50 ML IV SCH (15:26)
[2017-01-27 16:00] VITALS: BP 125/71
[2017-01-27 20:00] VITALS: BP 119/67
[2017-01-28] VITALS: BP 130/71
[2017-01-28 04:00] VITALS: BP 138/74
[2017-01-28] MEDS: BLOOD SUGAR DIAGNOSTIC STRIP TEST SCH ×4 (07:10→20:07)
[2017-01-28] MEDS: INSULIN LISPRO 100 UNITS/ML SUBCUT SCH ×4 (07:11→20:07)
[2017-01-28 08:00] VITALS: BP 145/78
[2017-01-28] MEDS: NIFEDIPINE XL 60MG TAB PO SCH (09:00)
[2017-01-28] MEDS: ONDANSETRON HCL 4MG/2ML VIAL IV PRN (09:19)
[2017-01-28] MEDS: FERROUS SULFATE 325MG TABLET PO SCH (09:22)
[2017-01-28] MEDS: MULTIVITAMINS,THER W-MINERALS TABLET PO SCH (09:22)
[2017-01-28] MEDS: ASCORBIC ACID 250 MG TABLET PO SCH ×2 (09:22→20:04)
[2017-01-28] MEDS: PAROXETINE HCL 20MG TABLET PO SCH (09:22)
[2017-01-28] MEDS: HYDROMORPHONE HCL/PF 2MG/ML CPJ IV SCH (09:24)
[2017-01-28 10:00] LABS: BASOPHILS % 0.9 % (0.0-2.0); EOSINOPHILS % 2.8 % (0.0-5.0); HEMATOCRIT. 29.4 % (42.0-52.0); HEMOGLOBIN. 10.2 g/dL (14.0-18.0); LYMPHOCYTES % 12.9 % (20.0-50.0); MEAN CORPUSCULAR HEMOGLOBIN 29.2 pg (28.0-32.0); MEAN CORPUSCULAR VOLUME 83.9 fL (80.0-94.0); MEAN PLATELET VOLUME 7.9 fl (7.4-10.4); MONOCYTES % 5.4 % (2.0-8.0); PLATELET 229 x1000/uL (130-400); RED CELL DISTRIBUTION WIDTH 13.7 % (11.6-14.6)
[2017-01-28 12:00] VITALS: BP 153/81
[2017-01-28 16:00] VITALS: BP 152/81
[2017-01-28] MEDS: CEFTRIAXONE 2 G in DEXTROSE 5% WATER 50 ML IV SCH (16:49)
[2017-01-28] MEDS: HYDROMORPHONE HCL/PF 2MG/ML CPJ IV PRN (17:46)
[2017-01-28 20:00] VITALS: BP 128/54
[2017-01-29] VITALS (14 sets, daily range): BP systolic 109–173; BP diastolic 62–91
[2017-01-29] MEDS: HYDROMORPHONE HCL/PF 2MG/ML CPJ IV PRN ×3 (03:51→20:55)
[2017-01-29] MEDS: INSULIN LISPRO 100 UNITS/ML SUBCUT SCH ×4 (06:18→21:00)
[2017-01-29] MEDS: BLOOD SUGAR DIAGNOSTIC STRIP TEST SCH ×4 (06:18→21:00)
[2017-01-29 07:04] LABS: BASOPHILS % 0.9 % (0.0-2.0); EOSINOPHILS % 2.8 % (0.0-5.0); HEMATOCRIT. 27.2 % (42.0-52.0); HEMOGLOBIN. 9.5 g/dL (14.0-18.0); LYMPHOCYTES % 15.6 % (20.0-50.0); MEAN CORPUSCULAR HEMOGLOBIN 29.4 pg (28.0-32.0); MEAN CORPUSCULAR VOLUME 84.3 fL (80.0-94.0); MEAN PLATELET VOLUME 7.5 fl (7.4-10.4); MONOCYTES % 7.7 % (2.0-8.0); PLATELET 214 x1000/uL (130-400); RED BLOOD CELL COUNT 3.23 mill/uL (4.7-6.1); RED CELL DISTRIBUTION WIDTH 14.2 % (11.6-14.6)
[2017-01-29] MEDS: FERROUS SULFATE 325MG TABLET PO SCH (08:53)
[2017-01-29] MEDS: CLONIDINE 0.1MG TABLET PO PRN (08:53)
[2017-01-29] MEDS: ASCORBIC ACID 250 MG TABLET PO SCH ×2 (08:53→20:48)
[2017-01-29] MEDS: MULTIVITAMINS,THER W-MINERALS TABLET PO SCH (08:53)
[2017-01-29] MEDS: NIFEDIPINE XL 60MG TAB PO SCH (08:53)
[2017-01-29] MEDS: PAROXETINE HCL 20MG TABLET PO SCH (08:54)
[2017-01-29] MEDS: ONDANSETRON HCL 4MG/2ML VIAL IV PRN (10:28)
[2017-01-29] MEDS ORDERED: SODIUM BICARBONATE 4% (2.4MEQ) 5ML VIAL IV ONE (13:45)
[2017-01-29] MEDS ORDERED: FENTANYL CITRATE/PF 50MCG/ML 2ML VIAL ONE (13:45)
[2017-01-29] MEDS ORDERED: LIDOCAINE HCL 1% 20ML VIAL (Pyxis) INJ ONE (13:45)
[2017-01-29] MEDS ORDERED: FENTANYL CITRATE/PF 50MCG/ML 2ML VIAL IV SCH (14:15)
[2017-01-29] MEDS: HYDROMORPHONE HCL/PF 2MG/ML CPJ IV SCH (16:19)
[2017-01-29] MEDS: CEFTRIAXONE 2 G in DEXTROSE 5% WATER 50 ML IV SCH (16:19)
[2017-01-30] VITALS: BP 112/58
[2017-01-30 04:00] VITALS: BP 117/63
[2017-01-30] MEDS: BLOOD SUGAR DIAGNOSTIC STRIP TEST SCH ×4 (05:45→21:05)
[2017-01-30] MEDS: HYDROMORPHONE HCL/PF 2MG/ML CPJ IV PRN ×2 (05:51→17:00)
[2017-01-30] MEDS: INSULIN LISPRO 100 UNITS/ML SUBCUT SCH ×4 (05:52→21:00)
[2017-01-30 07:43] LABS: EOSINOPHILS % 2.8 % (0.0-5.0); HEMATOCRIT. 28.9 % (42.0-52.0); HEMOGLOBIN. 9.6 g/dL (14.0-18.0); LYMPHOCYTES % 15.2 % (20.0-50.0); MEAN CORPUSCULAR HEMOGLOBIN 28.3 pg (28.0-32.0); MEAN CORPUSCULAR VOLUME 85.3 fL (80.0-94.0); MEAN PLATELET VOLUME 7.9 fl (7.4-10.4); PLATELET 213 x1000/uL (130-400); RED BLOOD CELL COUNT 3.39 mill/uL (4.7-6.1); RED CELL DISTRIBUTION WIDTH 14.2 % (11.6-14.6)
[2017-01-30 08:32] VITALS: BP 125/69
[2017-01-30] MEDS: NIFEDIPINE XL 60MG TAB PO SCH (08:37)
[2017-01-30] MEDS: HYDROMORPHONE HCL/PF 2MG/ML CPJ IV SCH (08:37)
[2017-01-30] MEDS: FERROUS SULFATE 325MG TABLET PO SCH (08:38)
[2017-01-30] MEDS: PAROXETINE HCL 20MG TABLET PO SCH (09:00)
[2017-01-30] MEDS: MULTIVITAMINS,THER W-MINERALS TABLET PO SCH (09:00)
[2017-01-30] MEDS: ASCORBIC ACID 250 MG TABLET PO SCH ×2 (09:00→20:36)
[2017-01-30 12:21] VITALS: BP 116/61
[2017-01-30 16:32] VITALS: BP 144/77
[2017-01-30 20:00] VITALS: BP 146/80
[2017-01-30] MEDS: CEPHALEXIN 500MG CAPSULE PO SCH (20:37)
[2017-01-31] VITALS: BP 152/82
[2017-01-31 04:00] VITALS: BP 160/84
[2017-01-31] MEDS: HYDROMORPHONE HCL/PF 2MG/ML CPJ IV PRN (04:51)
[2017-01-31] MEDS: INSULIN LISPRO 100 UNITS/ML SUBCUT SCH ×4 (06:09→21:00)
[2017-01-31] MEDS: BLOOD SUGAR DIAGNOSTIC STRIP TEST SCH ×4 (06:10→21:03)
[2017-01-31 08:00] VITALS: BP 161/83
[2017-01-31] MEDS: ASCORBIC ACID 250 MG TABLET PO SCH ×2 (10:06→20:40)
[2017-01-31] MEDS: MULTIVITAMINS,THER W-MINERALS TABLET PO SCH (10:06)
[2017-01-31] MEDS: ACETAMINOPHEN 325MG TABLET PO PRN (10:07)
[2017-01-31] MEDS: NIFEDIPINE XL 60MG TAB PO SCH (10:07)
[2017-01-31] MEDS: HYDROMORPHONE HCL/PF 2MG/ML CPJ IV SCH (10:07)
[2017-01-31] MEDS: CEPHALEXIN 500MG CAPSULE PO SCH ×2 (10:07→20:40)
[2017-01-31] MEDS: PAROXETINE HCL 20MG TABLET PO SCH (10:07)
[2017-01-31] MEDS: FERROUS SULFATE 325MG TABLET PO SCH (10:07)
[2017-01-31 12:00] VITALS: BP 173/91
[2017-01-31] MEDS: CLONIDINE 0.1MG TABLET PO PRN (14:24)
[2017-01-31 16:00] VITALS: BP 163/86
[2017-01-31 20:00] VITALS: BP 102/59
[2017-02-01] VITALS: BP 103/61
[2017-02-01 04:00] VITALS: BP 109/64
[2017-02-01] MEDS ORDERED: HYDROMORPHONE HCL/PF 2MG/ML CPJ IV PRN (04:30)
[2017-02-01 06:40] LABS: BASOPHILS % 1.1 % (0.0-2.0); EOSINOPHILS % 6.3 % (0.0-5.0); HEMATOCRIT. 28.1 % (42.0-52.0); HEMOGLOBIN. 9.6 g/dL (14.0-18.0); LYMPHOCYTES % 19.8 % (20.0-50.0); MEAN CORPUSCULAR HEMOGLOBIN 28.6 pg (28.0-32.0); MEAN PLATELET VOLUME 7.7 fl (7.4-10.4); MONOCYTES % 8.4 % (2.0-8.0); NEUTROPHILS % 64.4 % (40.0-76.0); PLATELET 244 x1000/uL (130-400); RED BLOOD CELL COUNT 3.34 mill/uL (4.7-6.1); RED CELL DISTRIBUTION WIDTH 14.3 % (11.6-14.6)
[2017-02-01] MEDS: BLOOD SUGAR DIAGNOSTIC STRIP TEST SCH ×4 (06:56→20:35)
[2017-02-01] MEDS: INSULIN LISPRO 100 UNITS/ML SUBCUT SCH ×4 (06:57→20:35)
[2017-02-01 08:00] VITALS: BP 130/63
[2017-02-01] MEDS: FERROUS SULFATE 325MG TABLET PO SCH (08:26)
[2017-02-01] MEDS: CEPHALEXIN 500MG CAPSULE PO SCH ×2 (08:26→20:29)
[2017-02-01] MEDS: MULTIVITAMINS,THER W-MINERALS TABLET PO SCH (08:27)
[2017-02-01] MEDS: ASCORBIC ACID 250 MG TABLET PO SCH ×2 (08:27→20:29)
[2017-02-01] MEDS: NIFEDIPINE XL 60MG TAB PO SCH (08:27)
[2017-02-01] MEDS: PAROXETINE HCL 20MG TABLET PO SCH (08:27)
[2017-02-01] MEDS: ACETAMINOPHEN 325MG TABLET PO PRN (09:26)
[2017-02-01 12:00] VITALS: BP 96/58
[2017-02-01 16:00] VITALS: BP 125/74
[2017-02-01] MEDS: HYDROMORPHONE HCL 4MG TABLET PO PRN (18:45)
[2017-02-01 20:00] VITALS: BP 139/78
[2017-02-01] MEDS ORDERED: HYDROMORPHONE HCL 4MG TABLET PO NR (20:15)
[2017-02-02] VITALS: BP_SYST 123; BP_SYST 140; BP_DIAS 70; BP_DIAS 83
[2017-02-02] MEDS: HYDROMORPHONE HCL 4MG TABLET PO PRN ×2 (02:46→16:31)
[2017-02-02 04:00] VITALS: BP 159/88
[2017-02-02] MEDS: BLOOD SUGAR DIAGNOSTIC STRIP TEST SCH ×4 (07:33→20:32)
[2017-02-02] MEDS: INSULIN LISPRO 100 UNITS/ML SUBCUT SCH ×4 (07:33→20:32)
[2017-02-02 08:00] VITALS: BP 160/90
[2017-02-02] MEDS: CEPHALEXIN 500MG CAPSULE PO SCH ×2 (10:01→20:33)
[2017-02-02] MEDS: NIFEDIPINE XL 60MG TAB PO SCH (10:01)
[2017-02-02] MEDS: FERROUS SULFATE 325MG TABLET PO SCH (10:01)
[2017-02-02] MEDS: ASCORBIC ACID 250 MG TABLET PO SCH ×2 (10:02→20:33)
[2017-02-02] MEDS: MULTIVITAMINS,THER W-MINERALS TABLET PO SCH (10:02)
[2017-02-02] MEDS: PAROXETINE HCL 20MG TABLET PO SCH (10:02)
[2017-02-02 12:00] VITALS: BP 178/96
[2017-02-02 16:00] VITALS: BP 153/84
[2017-02-02 20:00] VITALS: BP 133/77
[2017-02-03 01:24] VITALS: BP 123/70
[2017-02-03 04:00] VITALS: BP 106/55
[2017-02-03] MEDS: BLOOD SUGAR DIAGNOSTIC STRIP TEST SCH ×4 (07:04→21:00)
[2017-02-03] MEDS: INSULIN LISPRO 100 UNITS/ML SUBCUT SCH ×4 (07:40→21:00)
[2017-02-03] MEDS: MULTIVITAMINS,THER W-MINERALS TABLET PO SCH (08:46)
[2017-02-03] MEDS: ASCORBIC ACID 250 MG TABLET PO SCH ×2 (08:46→21:37)
[2017-02-03] MEDS: FERROUS SULFATE 325MG TABLET PO SCH (08:47)
[2017-02-03] MEDS: CEPHALEXIN 500MG CAPSULE PO SCH ×2 (08:47→21:37)
[2017-02-03] MEDS: PAROXETINE HCL 20MG TABLET PO SCH (08:47)
[2017-02-03] MEDS: HYDROMORPHONE HCL 4MG TABLET PO PRN ×2 (08:48→21:47)
[2017-02-03] MEDS: NIFEDIPINE XL 60MG TAB PO SCH (08:48)
[2017-02-03 16:00] VITALS: BP 112/65
[2017-02-03 20:10] VITALS: BP 118/68
[2017-02-04] VITALS: BP 124/69
[2017-02-04 03:57] VITALS: BP 122/67
[2017-02-04] MEDS: INSULIN LISPRO 100 UNITS/ML SUBCUT SCH ×4 (05:53→20:48)
[2017-02-04] MEDS: BLOOD SUGAR DIAGNOSTIC STRIP TEST SCH ×4 (05:53→20:48)
[2017-02-04 08:00] VITALS: BP 123/67
[2017-02-04] MEDS: NIFEDIPINE XL 60MG TAB PO SCH (09:00)
[2017-02-04 09:15] LABS: BASOPHILS % 0.8 % (0.0-2.0); EOSINOPHILS % 7.7 % (0.0-5.0); HEMOGLOBIN. 10.2 g/dL (14.0-18.0); LYMPHOCYTES % 19.9 % (20.0-50.0); MEAN CORPUSCULAR HEMOGLOBIN 28.5 pg (28.0-32.0); MEAN CORPUSCULAR VOLUME 84.3 fL (80.0-94.0); MEAN PLATELET VOLUME 7.2 fl (7.4-10.4); MONOCYTES % 8.1 % (2.0-8.0); NEUTROPHILS % 63.5 % (40.0-76.0); PLATELET 296 x1000/uL (130-400); RED BLOOD CELL COUNT 3.56 mill/uL (4.7-6.1); RED CELL DISTRIBUTION WIDTH 14.1 % (11.6-14.6)
[2017-02-04] MEDS: FERROUS SULFATE 325MG TABLET PO SCH (09:27)
[2017-02-04] MEDS: MULTIVITAMINS,THER W-MINERALS TABLET PO SCH (09:27)
[2017-02-04] MEDS: ASCORBIC ACID 250 MG TABLET PO SCH ×2 (09:27→23:22)
[2017-02-04] MEDS: PAROXETINE HCL 20MG TABLET PO SCH (09:27)
[2017-02-04] MEDS: CEPHALEXIN 500MG CAPSULE PO SCH ×2 (09:27→23:22)
[2017-02-04] MEDS: HYDROMORPHONE HCL 4MG TABLET PO PRN ×2 (09:28→17:14)
[2017-02-04 12:00] VITALS: BP 126/72
[2017-02-04] MEDS ORDERED: ALTEPLASE 2MG/VIAL ITC NR (12:30)
[2017-02-04 19:53] VITALS: BP 105/62
[2017-02-04 22:08] VITALS: BP 104/64
[2017-02-05 00:14] VITALS: BP 123/72
[2017-02-05] MEDS: HYDROMORPHONE HCL 4MG TABLET PO PRN ×2 (00:24→12:52)
[2017-02-05 04:59] VITALS: BP 135/75
[2017-02-05] MEDS: BLOOD SUGAR DIAGNOSTIC STRIP TEST SCH ×3 (06:26→18:00)
[2017-02-05] MEDS: INSULIN LISPRO 100 UNITS/ML SUBCUT SCH ×3 (06:27→17:40)
[2017-02-05 07:03] LABS: BASOPHILS % 0.8 % (0.0-2.0); EOSINOPHILS % 7.7 % (0.0-5.0); HEMATOCRIT. 27.4 % (42.0-52.0); HEMOGLOBIN. 9.5 g/dL (14.0-18.0); LYMPHOCYTES % 24.3 % (20.0-50.0); MEAN CORPUSCULAR HEMOGLOBIN 29.2 pg (28.0-32.0); MEAN CORPUSCULAR VOLUME 84.5 fL (80.0-94.0); MEAN PLATELET VOLUME 7.4 fl (7.4-10.4); MONOCYTES % 7.5 % (2.0-8.0); NEUTROPHILS % 59.7 % (40.0-76.0); PLATELET 237 x1000/uL (130-400); RED BLOOD CELL COUNT 3.25 mill/uL (4.7-6.1); RED CELL DISTRIBUTION WIDTH 14.2 % (11.6-14.6)
[2017-02-05 08:00] VITALS: BP_SYST 113; BP_SYST 139; BP_DIAS 76; BP_DIAS 80
[2017-02-05] MEDS: PAROXETINE HCL 20MG TABLET PO SCH (09:17)
[2017-02-05] MEDS: NIFEDIPINE XL 60MG TAB PO SCH (09:17)
[2017-02-05] MEDS: ASCORBIC ACID 250 MG TABLET PO SCH (09:18)
[2017-02-05] MEDS: CEPHALEXIN 500MG CAPSULE PO SCH (09:18)
[2017-02-05] MEDS: FERROUS SULFATE 325MG TABLET PO SCH (09:18)
[2017-02-05] MEDS: MULTIVITAMINS,THER W-MINERALS TABLET PO SCH (09:18)
[2017-02-05 12:00] VITALS: BP 144/80
[2017-02-05 16:00] VITALS: BP 125/74
[2017-02-05 17:59] VITALS: BP 125/74
== END 2017-02-05 19:30 | disposition home or self-care (01) | DRG 710 ==
LOC: ER 12:56 → 8WST 15:19 → EDBEDREQ 15:31 → ENRESERV 18:47
PROVIDERS: ADMIT Internal Medicine; ATTEND Internal Medicine
PROC: 02H633Z Insertion of Infusion Device into Right Atrium, Percutaneous Approach (ICD-10-PCS; 2017-01-16)
PROC: B2141ZZ Fluoroscopy of Right Heart using Low Osmolar Contrast (ICD-10-PCS; 2017-01-16)
PROC: 5A1D70Z Performance of Urinary Filtration, Intermittent, Less than 6 Hours Per Day (ICD-10-PCS; 2017-01-16)
PROC: 0Y6J0Z1 Detachment at Left Lower Leg, High, Open Approach (ICD-10-PCS; principal; 2017-01-17 07:30)
PROC: 30233N1 Transfusion of Nonautologous Red Blood Cells into Peripheral Vein, Percutaneous Approach (ICD-10-PCS; 2017-01-18)
PROC: 30233N1 Transfusion of Nonautologous Red Blood Cells into Peripheral Vein, Percutaneous Approach (ICD-10-PCS; 2017-01-24)
DX: A41.01 Sepsis due to Methicillin susceptible Staphylococcus aureus (principal); N17.0 Acute kidney failure with tubular necrosis; I96 Gangrene, not elsewhere classified; E87.2 Acidosis; N18.6 End stage renal disease; I12.0 Hypertensive chronic kidney disease with stage 5 chronic kidney disease or end stage renal disease; E11.52 Type 2 diabetes mellitus with diabetic peripheral angiopathy with gangrene; L03.116 Cellulitis of left lower limb; E11.22 Type 2 diabetes mellitus with diabetic chronic kidney disease; E11.42 Type 2 diabetes mellitus with diabetic polyneuropathy; E87.1 Hypo-osmolality and hyponatremia; D64.9 Anemia, unspecified; E11.65 Type 2 diabetes mellitus with hyperglycemia; E88.09 Other disorders of plasma-protein metabolism, not elsewhere classified; F17.200 Nicotine dependence, unspecified, uncomplicated; F32.9 Major depressive disorder, single episode, unspecified
CPT/HCPCS: 36415; 36556; 36558; 36589; 36600; 71010; 73590; 73630; 73700; 76770; 76937; 77001; 80048; 80053; 80202; 82375; 82550; 82805; 82962; 83036; 83605; 83735; 84100; 84484; 85014; 85018; 85025; 85379; 85610; 85651; 86140; 86705; 86709; 86803; 86850; 86900; 86920; 87040; 87070; 87077; 87186; 87205; 87340; 87493; 88307; 88311; 90715; 93005; 93306; 93923; 93971; 96365; 96366; 96367; 96375; 97110; 97116; 97162; 97530; 97535; 97542; 99291; A4216; C1750; C1752; J0330; J0696; J1170; J1200; J1580; J1642; J1644; J1815; J2250; J2270; J2405; J2543; J2704; J2997; J3010; J3370; J3490; J7030; J7040; J7050; J7060; J7070; P9016